=== PATIENT | male | born 1975 | race American Indian/Alaskan Native ===

== ENCOUNTER 2018-02-13 11:36 | Emergency (ER) | payer SELFPAY ==
--- NOTE | 2018-02-13 14:44 | Emergency Department Report ---
ED General Adult HPI - General Chief complaint: Medical Clearance Stated complaint: HEART MURMOR Time Seen by Provider: 02/13/18 14:23 Source: patient Mode of arrival: Ambulatory Limitations: No Limitations - History of Present Illness Initial comments: Patient's is a 6-year-old male whose presenting for evaluation of a heart murmur. Patient states he was in the process of getting a DOT physical and he listed that he has a murmur and physical was stopped and he was sent to the emergency department for evaluation. Patient denies any chest pain shortness of breath at this time. Patient states he's had a murmurs entire life. - Related Data Allergies Allergy/AdvReac Type Severity Reaction Status Date / Time No Known Allergies Allergy Unverified 02/13/18 12:06 ED Review of Systems ROS: Stated complaint: HEART MURMOR Other details as noted in HPI Comment: All other systems reviewed and negative ED Past Medical Hx - Past Medical History Previous Medical History?: No - Surgical History Past Surgical History?: No - Social History Smoking Status: Never Smoker Substance Use Type: Alcohol ED Physical Exam - General Limitations: No Limitations General appearance: alert, in no apparent distress - Head Head exam: Present: atraumatic, normocephalic - Eye Eye exam: Present: normal appearance - ENT ENT exam: Present: mucous membranes moist - Neck Neck exam: Present: normal inspection - Respiratory Respiratory exam: Present: normal lung sounds bilaterally. Absent: respiratory distress, wheezes, rales, rhonchi - Cardiovascular Cardiovascular Exam: Present: regular rate, normal rhythm, systolic murmur ( patient has a 2/6 systolic murmur that is very mild). Absent: diastolic murmur , rubs, gallop - GI/Abdominal GI/Abdominal exam: Present: soft, normal bowel sounds - Rectal Rectal exam: Present: deferred - Extremities Exam Extremities exam: Present: normal inspection - Back Exam Back exam: Present: normal inspection - Neurological Exam Neurological exam: Present: alert, oriented X3 - Psychiatric Psychiatric exam: Present: normal affect, normal mood - Skin Skin exam: Present: warm, dry, intact, normal color. Absent: rash ED Course Vital Signs 02/13/18 12:07 Temperature 98.7 F Pulse Rate 70 Respiratory 16 Rate Blood Pressure 124/74 O2 Sat by Pulse 98 Oximetry ED Medical Decision Making - Medical Decision Making Patient has a very slight systolic murmur. This does not sound like a murmur from aortic stenosis which would be the danger with him driving. Patient is discharged home in stable condition with follow-up with his primary care physicians. Critical care attestation.: If time is entered above; I have spent that time in minutes in the direct care of this critically ill patient, excluding procedure time. ED Disposition Clinical Impression: Murmur Disposition: DC-01 TO HOME OR SELFCARE Is pt being admited?: No Does the pt Need Aspirin: No Condition: Stable Referrals: PRIMARY CARE, [Primary Care Provider] - 3-5 Days
[2018-02-13 15:07] VITALS: BP 133/78
== END 2018-02-13 15:05 | disposition home or self-care (01) ==
LOC: ED 11:36
DX: R01.1 Cardiac murmur, unspecified (principal)
CPT/HCPCS: 99282